=== PATIENT | male | born 1990 | race African-American/Black ===

== ENCOUNTER 2018-08-26 16:27 | Emergency (ER) | payer BC ==
[~2018-08-26] VITALS: Ht 167.6 cm; Wt 99.8 kg
[~2018-08-26 16:27] MED LIST: NOHOMEMEDICATIONS; NORFLEX100 MG PO; ULTRAM 50MG TAB50 MG PO
[2018-08-26] MEDS ORDERED: TESSALON PERLE100 MG PO (17:33)
[2018-08-26] MEDS ORDERED: SUDOGEST30 MG PO (17:33)
[2018-08-26 17:53] VITALS: BP 148/94
== END 2018-08-26 17:54 | disposition home or self-care (01) ==
LOC: ER 16:27
DX: J06.9 Acute upper respiratory infection, unspecified (principal); J02.9 Acute pharyngitis, unspecified; F17.210 Nicotine dependence, cigarettes, uncomplicated